=== PATIENT | male | born 1970 | race Caucasian/White ===

== ENCOUNTER 2018-05-24 01:21 | Emergency (ER) | payer OTHER ==
[~2018-05-24] VITALS: Ht 175.3 cm; Wt 111.1 kg
[~2018-05-24 01:21] MED LIST: ACETAMINOPHEN; ACETAMINOPHEN-1 EAC1 PO; ALEVE220 MG PO; ALLERGY MEDICATION; ASPIRIN EC325 M1 PO; FLEXERIL PO; LISINOPRIL10 MG PO; MEDROLDOSEPACK PO; MOBIC7.5 MG PO; NOHOMEMEDICATIONS; NORCO 5-325 TA1 EACH PO; PROAIR HFA8.5 GM INH; PROMETHAZINE D480 ML PO; TRAMADOL 50 MG50 MG PO; VICODIN 5-5001 EACH PO; ZPAK PO
[2018-05-24] MEDS ORDERED: IBUPROFEN 800800 M1 PO (02:15)
[2018-05-24] MEDS ORDERED: AMOXICILLIN875 MG PO (02:15)
[2018-05-24 02:33] VITALS: BP 166/99
== END 2018-05-24 02:34 | disposition home or self-care (01) ==
LOC: M.ERS 01:21
DX: H66.92 Otitis media, unspecified, left ear (principal); I10 Essential (primary) hypertension; F17.210 Nicotine dependence, cigarettes, uncomplicated

== ENCOUNTER 2018-07-08 18:09 | Emergency (ER) | payer OTHER ==
[~2018-07-08] VITALS: Ht 175.3 cm; Wt 113.4 kg
[~2018-07-08 18:09] MED LIST changes: +AMOXICILLIN875 MG PO; +IBUPROFEN 800800 M1 PO
[2018-07-08] MEDS ORDERED: NORCO 5-325 TA1 EAC1 PO (18:54)
[2018-07-08 19:13] VITALS: BP 158/100
== END 2018-07-08 19:15 | disposition home or self-care (01) ==
LOC: M.ERS 18:09
DX: S46.221A Laceration of muscle, fascia and tendon of other parts of biceps, right arm, initial encounter (principal); I10 Essential (primary) hypertension; F17.210 Nicotine dependence, cigarettes, uncomplicated; Y08.89XA Assault by other specified means, initial encounter; Y93.89 Activity, other specified; Y92.89 Other specified places as the place of occurrence of the external cause; Y99.8 Other external cause status

== ENCOUNTER → 2018-07-17 | Outpatient (CLI) | payer OTHER ==
[~2018-07-17] MED LIST changes: +NORCO 5-325 TA1 EAC1 PO
== END ==
LOC: M.MRI 07:16
DX: M65.821 Other synovitis and tenosynovitis, right upper arm (principal); M25.421 Effusion, right elbow; S46.211A Strain of muscle, fascia and tendon of other parts of biceps, right arm, initial encounter; X58.XXXA Exposure to other specified factors, initial encounter; Y93.89 Activity, other specified; Y92.89 Other specified places as the place of occurrence of the external cause; Y99.8 Other external cause status

== ENCOUNTER 2018-09-05 20:25 | Emergency (ER) | payer OTHER ==
[~2018-09-05] VITALS: Ht 175.3 cm; Wt 111.1 kg
[2018-09-05] MEDS ORDERED: TRAMADOL 50 MG50 MG PO (21:35)
[2018-09-05 22:01] VITALS: BP 157/102
== END 2018-09-05 22:01 | disposition home or self-care (01) ==
LOC: M.ERS 20:25
DX: M25.561 Pain in right knee (principal); I10 Essential (primary) hypertension; F17.210 Nicotine dependence, cigarettes, uncomplicated

== ENCOUNTER 2018-10-10 21:47 | Emergency (ER) | payer OTHER ==
[~2018-10-10] VITALS: Ht 175.3 cm; Wt 113.4 kg
[2018-10-10] MEDS ORDERED: LISINOPRIL5 MG PO (21:57)
[2018-10-10 22:37] LABS: INFLUENZA A ANTIGEN None Detected (None Detect); INFLUENZA B ANTIGEN None Detected (None Detect)
[2018-10-10] MEDS ORDERED: PREDNISONE 10 M10 M1 PO (22:39)
[2018-10-10] MEDS ORDERED: BENZONATATE200 MG PO (22:40)
[2018-10-10] MEDS ORDERED: CLARITIN10 M3 PO (22:40)
[2018-10-10 22:49] VITALS: BP 134/80
== END 2018-10-10 22:51 | disposition home or self-care (01) ==
LOC: M.ERS 21:47
PROVIDERS: Nurse Practitioner
DX: J30.9 Allergic rhinitis, unspecified (principal); J40 Bronchitis, not specified as acute or chronic; F17.210 Nicotine dependence, cigarettes, uncomplicated; I10 Essential (primary) hypertension

== ENCOUNTER 2019-05-16 23:09 | Emergency (ER) | payer OTHER ==
[~2019-05-16] VITALS: Ht 172.7 cm; Wt 113.4 kg
[~2019-05-16 23:09] MED LIST changes: +BENZONATATE200 MG PO; +CLARITIN10 M3 PO; +LISINOPRIL5 MG PO; +PREDNISONE 10 M10 M1 PO
[2019-05-17] MEDS ORDERED: LORCET 5-325 M1 EACH PO (00:16)
[2019-05-17] MEDS ORDERED: ERYTHROMYCIN E3.5 G2 OPHTHALMIC (00:16)
[2019-05-17 00:22] VITALS: BP 155/90
== END 2019-05-17 00:24 | disposition home or self-care (01) ==
LOC: M.ERS 23:09
DX: H57.12 Ocular pain, left eye (principal); I10 Essential (primary) hypertension; Z98.890 Other specified postprocedural states; Z87.891 Personal history of nicotine dependence

== ENCOUNTER 2019-06-16 16:12 | Emergency (ER) | payer OTHER ==
[~2019-06-16] VITALS: Ht 175.3 cm; Wt 118.8 kg
[~2019-06-16 16:12] MED LIST changes: +ERYTHROMYCIN E3.5 G2 OPHTHALMIC; +LORCET 5-325 M1 EACH PO
[2019-06-16 16:35] LABS: ABSOLUTE BASOPHILS 0.1 thou/uL (0.0-0.2); ABSOLUTE EOSINOPHILS 0.3 thou/uL (0.0-0.7); ABSOLUTE LYMPHOCYTES 1.9 thou/uL (0.8-5.3); ABSOLUTE MONOCYTES 0.6 thou/uL (0.0-1.2); ABSOLUTE NEUTROPHILS 5.5 thou/uL (1.6-8.1); EOSINOPHILS 3.2 %; HEMATOCRIT 45.8 % (42.0-52.0); HEMOGLOBIN 15.9 gm/dL (14.0-18.0); LYMPHOCYTES 22.7 %; MCH 31.6 pg (26.0-34.0); MCHC 34.8 g/dL (28.0-37.0); MCV 90.9 fL (80.0-100.0); MONOCYTES 6.8 %; MPV 7.6 fl. (7.2-11.1); NUCLEATED RBCS 0 /100WBC; PLATELET COUNT* 237 thou/uL (150-400); POLYS 66.3 %; RBC 5.04 mil/uL (4.50-6.00); RDW-CV 12.9 % (10.5-14.5); WBC 8.3 thou/uL (4.0-11.0)
[2019-06-16 16:44] LABS: CALCIUM 8.7 mg/dL (8.5-10.1); CREATININE 1.2 mg/dL (0.6-1.3); POTASSIUM 3.9 mmol/L (3.5-5.1)
[2019-06-16 16:47] LABS: APTT 27.8 Seconds (25.0-31.3); PROTIME 10.4 Seconds (9.20-11.50)
[2019-06-16 16:56] LABS: ALBUMIN 4.2 g/dL (3.4-5.0); CK-MB MASS 0.7 ng/mL (<0.5-3.6); TOTAL BILIRUBIN 0.4 mg/dL (<0.1-1.0); TOTAL PROTEIN 8.6 g/dL (6.4-8.2)
[2019-06-16 17:59] VITALS: BP 150/105
--- NOTE | 2019-06-17 13:45 | EKG ---
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1970 Requested By: Peter Mclain Order Number: [id number] MD: Kristofer Marquez Measurements Intervals [place] Rate: 86 P: 61 NV: 145 QRS: -29 QRSD: 84 T: 32 QT: 356 QTc: 426 Interpretive Statements Sinus rhythm Borderline left axis deviation Abnormal R-wave progression, early transition Baseline wander in lead(s) V1 Compared to ECG 11/02/2016 16:48:30 No significant changes Electronically Signed On 06-17-2019 13:45:06 PERSONAL CHEF by Kristofer Marquez [email or web address] <ELECTRONICALLY SIGNED> By: Kristofer Marquez MD, [facility] 06/17/19 1345 1619 1619 Kristofer Marquez MD, [facility] /EPI
== END 2019-06-16 18:00 | disposition home or self-care (01) ==
LOC: M.ERS 16:12
PROVIDERS: Family Medicine
DX: R07.89 Other chest pain (principal); I10 Essential (primary) hypertension; Z98.890 Other specified postprocedural states; Z87.891 Personal history of nicotine dependence

== ENCOUNTER 2019-06-25 15:35 | Emergency (ER) | payer OTHER ==
[~2019-06-25] VITALS: Ht 177.8 cm; Wt 115.7 kg
[2019-06-25 16:00] LABS: ABSOLUTE MONOCYTES 0.9 thou/uL (0.0-1.2); ABSOLUTE NEUTROPHILS 3.9 thou/uL (1.6-8.1); BASOPHILS 0.5 %; EOSINOPHILS 0.3 %; HEMATOCRIT 44.6 % (42.0-52.0); HEMOGLOBIN 15.5 gm/dL (14.0-18.0); LYMPHOCYTES 17.6 %; MCH 31.5 pg (26.0-34.0); MCHC 34.7 g/dL (28.0-37.0); MCV 90.7 fL (80.0-100.0); MONOCYTES 15.1 %; MPV 7.3 fl. (7.2-11.1); NUCLEATED RBCS 0 /100WBC; PLATELET COUNT* 208 thou/uL (150-400); POLYS 66.5 %; RBC 4.92 mil/uL (4.50-6.00); RDW-CV 12.9 % (10.5-14.5); WBC 5.9 thou/uL (4.0-11.0)
[2019-06-25 16:06] LABS: CREATININE 1.3 mg/dL (0.6-1.3); POTASSIUM 3.8 mmol/L (3.5-5.1)
[2019-06-25 16:10] LABS: ALBUMIN 3.6 g/dL (3.4-5.0); TOTAL BILIRUBIN 0.8 mg/dL (<0.1-1.0)
[2019-06-25 16:19] LABS: INFLUENZA A ANTIGEN Negative (Negative); INFLUENZA B ANTIGEN Negative (Negative)
[2019-06-25] MEDS ORDERED: ONDANSETRON ODT4 MG PO (16:48)
[2019-06-25] MEDS ORDERED: PROAIR HFA8.5 GM INH (16:48)
[2019-06-25] MEDS ORDERED: MEDROLDOSEPACK PO (16:48)
[2019-06-25] MEDS ORDERED: TYLENOL WITH CO1 TA1 PO (16:49)
[2019-06-25 16:57] VITALS: BP 125/84
== END 2019-06-25 16:59 | disposition home or self-care (01) ==
LOC: M.ERS 15:35
PROVIDERS: Physician Assistant
DX: J20.9 Acute bronchitis, unspecified (principal); R11.2 Nausea with vomiting, unspecified; R19.7 Diarrhea, unspecified; I10 Essential (primary) hypertension; Z87.891 Personal history of nicotine dependence

== ENCOUNTER 2019-09-06 00:05 | Emergency (ER) | payer OTHER ==
[~2019-09-06] VITALS: Ht 175.3 cm; Wt 108.9 kg
[~2019-09-06 00:05] MED LIST changes: +ONDANSETRON ODT4 MG PO; +TYLENOL WITH CO1 TA1 PO
[2019-09-06 00:43] VITALS: BP 139/97
== END 2019-09-06 00:43 | disposition home or self-care (01) ==
LOC: M.ERS 00:05
DX: S60.222A Contusion of left hand, initial encounter (principal); I10 Essential (primary) hypertension; W22.8XXA Striking against or struck by other objects, initial encounter; Y93.89 Activity, other specified; Y92.89 Other specified places as the place of occurrence of the external cause; Y99.8 Other external cause status

== ENCOUNTER 2019-10-30 17:39 | Emergency (ER) | payer OTHER ==
[~2019-10-30] VITALS: Ht 175.3 cm; Wt 108.9 kg
[2019-10-30] MEDS ORDERED: ZANAFLEX4 MG PO (19:56)
[2019-10-30 20:08] VITALS: BP 144/98
== END 2019-10-30 20:08 | disposition home or self-care (01) ==
LOC: M.ERS 17:39
DX: S39.012A Strain of muscle, fascia and tendon of lower back, initial encounter (principal); S29.012A Strain of muscle and tendon of back wall of thorax, initial encounter; I10 Essential (primary) hypertension; Z87.891 Personal history of nicotine dependence; V49.49XA Driver injured in collision with other motor vehicles in traffic accident, initial encounter; Y93.89 Activity, other specified; Y92.89 Other specified places as the place of occurrence of the external cause; Y99.8 Other external cause status

== ENCOUNTER 2020-01-02 01:40 | Emergency (ER) | payer OTHER ==
[~2020-01-02] VITALS: Ht 175.3 cm; Wt 113.4 kg
[~2020-01-02 01:40] MED LIST changes: +ZANAFLEX4 MG PO
[2020-01-02] MEDS ORDERED: AMOXICILLIN875 MG PO (03:02)
[2020-01-02] MEDS ORDERED: PROAIR HFA8.5 GM INH (03:02)
[2020-01-02] MEDS ORDERED: MEDROLDOSEPACK PO (03:02)
[2020-01-02 03:09] VITALS: BP 139/85
== END 2020-01-02 03:11 | disposition home or self-care (01) ==
LOC: M.ERS 01:40
DX: J32.9 Chronic sinusitis, unspecified (principal); I10 Essential (primary) hypertension; Z87.891 Personal history of nicotine dependence

== ENCOUNTER 2020-04-13 22:04 | Emergency (ER) | payer OTHER ==
[~2020-04-13] VITALS: Ht 172.7 cm; Wt 115.7 kg
[2020-04-13 23:09] LABS: CALCIUM 8.9 mg/dL (8.5-10.1); CREATININE 1.1 mg/dL (0.6-1.3); POTASSIUM 4.1 mmol/L (3.5-5.1)
[2020-04-13] MEDS ORDERED: NORCO 5-325 TA1 EAC2 PO (23:41)
[2020-04-13] MEDS ORDERED: IBUPROFEN 800800 M1 PO (23:41)
[2020-04-13] MEDS ORDERED: FLEXERIL PO (23:41)
[2020-04-14 00:38] VITALS: BP 168/90
--- NOTE | 2020-04-14 11:33 | EKG ---
[place] [address] ELECTROCARDIOGRAM REPORT Name: KEITH VELASQUEZ Room: [facility]#: [id number] Admission: 04/13/20 Attend Phys: Discharge: 04/14/20 Date of : 72 Date of Service: 04/13/202241 Report #: [id number] THIS REPORT FOR: //name// 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
== END 2020-04-14 00:39 | disposition home or self-care (01) ==
LOC: M.ERS 22:04
PROVIDERS: Emergency Medicine Emergency Medical Services
DX: S46.811A Strain of other muscles, fascia and tendons at shoulder and upper arm level, right arm, initial encounter (principal); I10 Essential (primary) hypertension; Z87.891 Personal history of nicotine dependence; X50.9XXA Other and unspecified overexertion or strenuous movements or postures, initial encounter; Y93.89 Activity, other specified; Y92.89 Other specified places as the place of occurrence of the external cause; Y99.8 Other external cause status

== ENCOUNTER 2020-12-13 22:40 | Emergency (ER) | payer OTHER ==
[~2020-12-13] VITALS: Ht 172.7 cm; Wt 117.9 kg
[~2020-12-13 22:40] MED LIST changes: +NORCO 5-325 TA1 EAC2 PO
[2020-12-14 00:16] VITALS: BP 123/64
== END 2020-12-14 00:17 | disposition home or self-care (01) ==
LOC: M.ERS 22:40
DX: S93.492A Sprain of other ligament of left ankle, initial encounter (principal); I10 Essential (primary) hypertension; Z87.891 Personal history of nicotine dependence; Z79.899 Other long term (current) drug therapy; Z98.890 Other specified postprocedural states; X50.1XXA Overexertion from prolonged static or awkward postures, initial encounter; Y93.89 Activity, other specified; Y92.89 Other specified places as the place of occurrence of the external cause; Y99.9 Unspecified external cause status

== ENCOUNTER 2020-12-27 15:01 | Emergency (ER) | payer OTHER ==
[~2020-12-27] VITALS: Ht 175.3 cm; Wt 117.9 kg
[2020-12-27 16:03] LABS: HEMATOCRIT 44.6 % (42.0-52.0); HEMOGLOBIN 15.9 gm/dL (14.0-18.0); MCH 32.5 pg (26.0-34.0); MCHC 35.6 g/dL (28.0-37.0); MCV 91.4 fL (80.0-100.0); MPV 7.7 fl. (7.2-11.1); RBC 4.89 mil/uL (4.50-6.00); RDW-CV 13.6 % (10.5-14.5); WBC 3.2 thou/uL (4.0-11.0)
[2020-12-27 16:11] LABS: CALCIUM 8.2 mg/dL (8.5-10.1); CREATININE 1.2 mg/dL (0.6-1.3); POTASSIUM 3.6 mmol/L (3.5-5.1)
[2020-12-27 16:16] LABS: ALBUMIN 3.6 g/dL (3.4-5.0); TOTAL BILIRUBIN 0.7 mg/dL (<0.1-1.0); TOTAL PROTEIN 8.2 g/dL (6.4-8.2)
--- NOTE | 2020-12-27 17:08 | EKG ---
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 : 1970 Requested By: Becka Chandler Order Number: [id number] MD: Roel Chisholm Measurements Intervals [place] Rate: 80 P: 77 [place]: 143 QRS: -33 QRSD: 100 T: 35 QT: 380 QTc: 439 Interpretive Statements Sinus rhythm Left axis deviation Abnormal R-wave progression, early transition Compared to ECG 04/13/2020 22:42:36 Left-axis deviation now present Sinus arrhythmia no longer present Electronically Signed On 12-27-2020 17:07:59 CDT by Roel Chisholm [email or web address] <ELECTRONICALLY SIGNED> By: Roel Chisholm MD, FACC 12/27/20 1707 1630 1630 Roel Chisholm MD, FAC /EPI
[2020-12-27 18:11] LABS: URINE BILIRUBIN NEGATIVE (Negative); URINE BLOOD NEGATIVE (Negative); URINE CLARITY CLEAR; URINE COLOR YELLOW; URINE GLUCOSE-RANDOM NEGATIVE (Negative); URINE KETONES TRACE (Negative); URINE LEUKOCYTES NEGATIVE (Negative); URINE NITRITE NEGATIVE (Negative); URINE PROTEIN TRACE (Negative); URINE SPECIFIC GRAVITY 1.025 (1.005-1.030)
[2020-12-27] MEDS ORDERED: ZPAK PO (19:05)
[2020-12-27] MEDS ORDERED: ZOFRAN ODT4 MG PO (19:05)
[2020-12-27 19:12] VITALS: BP 124/65
== END 2020-12-27 19:13 | disposition home or self-care (01) ==
LOC: M.ERS 15:01
PROVIDERS: Nurse Practitioner Family
DX: J18.9 Pneumonia, unspecified organism (principal); Z20.822 Contact with and (suspected) exposure to COVID-19; I10 Essential (primary) hypertension; Z87.891 Personal history of nicotine dependence

== ENCOUNTER 2021-01-03 05:10 | Emergency (ER) | payer OTHER ==
[~2021-01-03] VITALS: Ht 175.3 cm; Wt 117.9 kg
[~2021-01-03 05:10] MED LIST changes: +ZOFRAN ODT4 MG PO
[2021-01-03 05:44] LABS: HEMATOCRIT 40.3 % (42.0-52.0); HEMOGLOBIN 14.1 gm/dL (14.0-18.0); MCH 31.8 pg (26.0-34.0); MCV 91.1 fL (80.0-100.0); MPV 7.3 fl. (7.2-11.1); NUCLEATED RBCS 0 /100WBC; PLATELET COUNT* 340 thou/uL (150-400); RBC 4.43 mil/uL (4.50-6.00); RDW-CV 12.8 % (10.5-14.5); WBC 4.9 thou/uL (4.0-11.0)
[2021-01-03 05:49] LABS: CALCIUM 8.5 mg/dL (8.5-10.1); CREATININE 1.2 mg/dL (0.6-1.3); POTASSIUM 3.7 mmol/L (3.5-5.1)
[2021-01-03 05:54] LABS: ALBUMIN 3.4 g/dL (3.4-5.0); TOTAL BILIRUBIN 0.6 mg/dL (<0.1-1.0); TOTAL PROTEIN 7.7 g/dL (6.4-8.2)
[2021-01-03 06:41] LABS: ABSOLUTE LYMPHOCYTES 1.7 thou/uL (0.8-5.3); ABSOLUTE MONOCYTES 0.3 thou/uL (0.0-1.2); ABSOLUTE NEUTROPHILS 2.8 thou/uL (1.6-8.1); ANISOCYTOSIS 1+; PLATELET ESTIMATE ADEQUATE; POIKILOCYTOSIS 1+
[2021-01-03] MEDS ORDERED: CARAFATE1 GM PO (07:13)
[2021-01-03] MEDS ORDERED: ZOFRAN ODT4 MG PO (07:13)
[2021-01-03 07:25] VITALS: BP 162/99
== END 2021-01-03 07:26 | disposition home or self-care (01) ==
LOC: M.ERS 05:10
PROVIDERS: Emergency Medicine
DX: R11.2 Nausea with vomiting, unspecified (principal); I10 Essential (primary) hypertension; Z87.891 Personal history of nicotine dependence

== ENCOUNTER 2021-01-15 06:55 | Emergency (ER) | payer OTHER ==
[~2021-01-15] VITALS: Ht 175.3 cm; Wt 117.9 kg
[~2021-01-15 06:55] MED LIST changes: +CARAFATE1 GM PO
[2021-01-15 08:17] LABS: ABSOLUTE EOSINOPHILS 0.1 thou/uL (0.0-0.7); ABSOLUTE LYMPHOCYTES 1.2 thou/uL (0.8-5.3); ABSOLUTE MONOCYTES 0.5 thou/uL (0.0-1.2); ABSOLUTE NEUTROPHILS 2.7 thou/uL (1.6-8.1); BASOPHILS 0.7 %; EOSINOPHILS 2.8 %; HEMOGLOBIN 13.2 gm/dL (14.0-18.0); LYMPHOCYTES 25.9 %; MCH 31.7 pg (26.0-34.0); MCHC 34.6 g/dL (28.0-37.0); MCV 91.7 fL (80.0-100.0); MONOCYTES 10.1 %; MPV 7.3 fl. (7.2-11.1); NUCLEATED RBCS 0 /100WBC; PLATELET COUNT* 180 thou/uL (150-400); POLYS 60.5 %; RBC 4.14 mil/uL (4.50-6.00); RDW-CV 13.4 % (10.5-14.5); WBC 4.5 thou/uL (4.0-11.0)
[2021-01-15 08:25] LABS: CALCIUM 8.3 mg/dL (8.5-10.1); POTASSIUM 4.2 mmol/L (3.5-5.1)
[2021-01-15 08:30] LABS: ALBUMIN 3.3 g/dL (3.4-5.0); TOTAL BILIRUBIN 0.4 mg/dL (<0.1-1.0); TOTAL PROTEIN 6.9 g/dL (6.4-8.2)
[2021-01-15] MEDS ORDERED: PERCOCET PO (08:51)
[2021-01-15] MEDS ORDERED: LEVAQUIN 500 M500 MG PO (08:51)
[2021-01-15] MEDS ORDERED: FLOMAX0.4 MG PO (08:51)
[2021-01-15 09:00] VITALS: BP 144/90
== END 2021-01-15 09:00 | disposition home or self-care (01) ==
LOC: M.ERS 06:55
PROVIDERS: Family Medicine
DX: N20.1 Calculus of ureter (principal); J18.9 Pneumonia, unspecified organism; I10 Essential (primary) hypertension; Z87.891 Personal history of nicotine dependence; Z79.899 Other long term (current) drug therapy

== ENCOUNTER 2021-06-05 00:22 | Emergency (ER) | payer OTHER ==
[~2021-06-05] VITALS: Ht 175.3 cm; Wt 117.9 kg
[~2021-06-05 00:22] MED LIST changes: +FLOMAX0.4 MG PO; +LEVAQUIN 500 M500 MG PO; +PERCOCET PO
[2021-06-05 01:18] LABS: ABSOLUTE BASOPHILS 0.1 thou/uL (0.0-0.2); ABSOLUTE EOSINOPHILS 0.2 thou/uL (0.0-0.7); ABSOLUTE LYMPHOCYTES 1.9 thou/uL (0.8-5.3); ABSOLUTE MONOCYTES 0.7 thou/uL (0.0-1.2); ABSOLUTE NEUTROPHILS 5.6 thou/uL (1.6-8.1); HEMATOCRIT 44.1 % (42.0-52.0); HEMOGLOBIN 15.1 gm/dL (14.0-18.0); LYMPHOCYTES 21.9 %; MCH 31.1 pg (26.0-34.0); MCHC 34.2 g/dL (28.0-37.0); MCV 90.9 fL (80.0-100.0); MONOCYTES 8.5 %; MPV 7.3 fl. (7.2-11.1); NUCLEATED RBCS 0 /100WBC; PLATELET COUNT* 231 thou/uL (150-400); POLYS 66.6 %; RBC 4.85 mil/uL (4.50-6.00); RDW-CV 12.8 % (10.5-14.5); WBC 8.5 thou/uL (4.0-11.0)
[2021-06-05 01:23] LABS: CALCIUM 8.5 mg/dL (8.5-10.1); CREATININE 1.2 mg/dL (0.6-1.3); POTASSIUM 3.8 mmol/L (3.5-5.1)
[2021-06-05 01:28] LABS: ALBUMIN 3.6 g/dL (3.4-5.0); TOTAL BILIRUBIN 0.5 mg/dL (<0.1-1.0); TOTAL PROTEIN 7.7 g/dL (6.4-8.2)
[2021-06-05 02:33] VITALS: BP 114/76
--- NOTE | 2021-06-05 11:29 | EKG ---
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[place] : 1970 Requested By: Pepper Restrepo Order Number: [id number] MD: Kristofer Marquez Measurements Intervals [place] Rate: 84 P: 76 [place]: 155 QRS: -22 QRSD: 87 T: 29 QT: 373 QTc: 441 Interpretive Statements Sinus rhythm Borderline left axis deviation Abnormal R-wave progression, early transition Baseline wander in lead(s) V3 Compared to ECG 12/27/2020 16:30:39 No significant changes Electronically Signed On 06-05-2021 11:29:09 KNOCK OUT HAND by Kristofer Marquez [email or web address] <ELECTRONICALLY SIGNED> By: Kristofer Marquez MD, FACC 06/05/21 1129 0028 0028 Kristofer Marquez MD, [facility] /EPI
== END 2021-06-05 02:36 | disposition home or self-care (01) ==
LOC: M.ERS 00:22
PROVIDERS: Personal Emergency Response Attendant
DX: F43.0 Acute stress reaction (principal); R07.89 Other chest pain; I10 Essential (primary) hypertension; Z79.899 Other long term (current) drug therapy; Z87.891 Personal history of nicotine dependence

== ENCOUNTER → 2021-07-18 | Emergency (ER) | payer OTHER ==
[~2021-07-18] VITALS: Ht 175.3 cm; Wt 120.2 kg
[~2021-07-18] MED LIST changes: +AMOX TR-K CLV1 EAC4 PO
[2021-07-18 20:48] VITALS: BP 135/98
== END ==
LOC: M.ERS 20:17
DX: J01.90 Acute sinusitis, unspecified (principal); B96.89 Other specified bacterial agents as the cause of diseases classified elsewhere; R10.12 Left upper quadrant pain; I10 Essential (primary) hypertension; Z98.890 Other specified postprocedural states; Z79.899 Other long term (current) drug therapy; Z87.891 Personal history of nicotine dependence